=== PATIENT | female | born 1955 | race Two or more races ===

== ENCOUNTER 2024-08-26 10:28 | Outpatient (AMB) | payer OTHER, SELFPAY ==
[2024-08-26 10:40] VITALS: BP 160/105; PULSE 94; RESP 18; TEMP 36.4; O2SAT 95; BMI 30.8
--- NOTE | 2024-08-26 10:40 | GSCOFFNT_ITS ---
Vital Signs - [facility] 08/26/24 10:40 Height 1.55 m Height Method Stated Weight 74.134 kg Weight Measurement Method Standing Scale BMI 30.8 BP 160/105 H Blood Pressure Source Automatic Cuff Blood Pressure Location Right Upper Arm Position Sitting Respiration 18 Pulse 94 Pulse Source Monitor Temp 97.6 F Temp Source Temporal Artery Scan Pulse Oximetry (%) 95 Oxygen Delivery Method Room Air Med/Allergies Allergies & Medications Allergies NKA* Allergy (Uncoded 08/26/24 10:40) Medication Reconciliation Unobtainable 12/22/23 [History Confirmed 08/26/24] MA Intake Visit Data Collection New Patient or Established: Established Patient (seen at [facility] within 3 years) Seen by Clinical Staff ONLY (RN/MA): No Reason for Visit:: COLONOSCOPY RESULTS Pain Present Currently: No Pain scale:: 0 Sales Representative Door To Door Required: Yes PCP or OBGYN visit in last 3 months: Yes Hx Now: No Do You Feel Safe at Home: Yes Authorities Contacted: N/A Smoking Status Smoking Status: Never smoker Immunization / Flu Flu Vaccine in the Last 12 Months: Yes Flu Vaccine Exclusion Criteria: Already Received Past Medical History Past Medical History NEUROLOGIC: Negative Neurological Disorders or Seizures CARDIAC: Negative Cardiac Disorders or Congestive Heart Failure RESPIRATORY: Negative Chronic Obstructive Pulmonary Disease (COPD) GASTROINTESTINAL: Negative Gastrointestinal Disorders GENITOURINARY: Negative Genitourinary Disorders or Renal Disease ENDOCRINE: Negative Endocrine Disorders, Diabetes Mellitus Type 1 or Diabetes Mellitus Type 2 HEMATOLOGIC: Negative Blood Disorders OTHER HISTORY: Positive Chicken Pox; Negative Hospitalization, Autoimmune Disease, Blood Transfusions, Anesthesia Reactions, Measles, Mumps or Cancer Surgical History SURGICAL: Positive Section Social History SMOKING STATUS: Smoking status: Never smoker ALCOHOL: Alcohol Intake: Never HPI HPI Narrative Spoke to pt with in-person educational interpreter 69F here for follow up of screening colonoscopy. Procedure was undertaken 08/12 but aborted due to severe tortuosity of sigmoid colon. Pt reports feeling well currently with no complaints ROS Review of Systems Systems Reviewed: All systems reviewed, normal except as documented Objective/Exam General General Appearance: alert, cooperative and well groomed Resp Respiratory exam: Absent respiratory distress Results Colonoscopy report and pathology report reviewed (hyperplastic polyp) Assessment & Plan Diagnosis / Problem List (1) Encounter to discuss colonoscopy results: Status: Acute Plan 69F s/p attempted screening colonoscopy 08/12 which was aborted due to severe tortuosity of sigmoid colon. I recommended pt follow up with a GI to repeat scope in a year; she states she has an appt with a GI in [place] Sep 16 for EGD and will discuss colonoscopy as well. Pt is encouraged to follow up as needed Advanced Care Planning Advance care planning discussed with:: patient Office Procedures GNS Level of Care Nursing/Assessment Patient Status: Established Patient Nursing Assessment/Reassesment: Medication Reconciliation, Update PMH in EMR and Vital Signs Coordination of Care: Complex Care and Chronic Disease 1-5, Education Complex Pt/Fam, Consent,records obtained, informed consent, Results/Orders obtained and Staff clarify orders Special Needs: Language special needs Established Patient Charge Established Patient Point Assignment: 95 Established Patient Point Charge: EP Level 3 (80-115) Patient Portal Questionaires Social History Tobacco History Smoking Status: Never smoker Alcohol History Alcohol Intake: Never Domestic Abuse History Do You Feel Safe at Home: Yes Review of Systems Report any current symptoms Only answer those that you have currently: Past Medical History Past Medical History Have you ever been diagnosed with any of the following: Neurological Problems Seizures: No Cardiology Problems Congestive Heart Failure: No Respiratory Problems Chronic Obstructive Pulmonary Disease (COPD): No Genital/Urinary Problems Renal Disease: No Endocrine Problems Diabetes Mellitus Type 1: No Diabetes Mellitus Type 2: No Other Problems Hospitalization: No Autoimmune Disease: No Blood Transfusions: No Anesthesia Reactions: No Chicken Pox: Yes Measles: No Mumps: No Cancer: No
== END 2024-08-26 11:25 | disposition home or self-care (01) ==
LOC: HODSRG 10:28
PROVIDERS: PCP Registered Nurse; Referring Provider Registered Nurse; Supervising Provider Surgery; Visit Provider Surgery
DX: Z48.815 Encounter for surgical aftercare following surgery on the digestive system (principal)
CPT/HCPCS: 99213; G0463

== ENCOUNTER → 2025-05-05 | Outpatient (CLI) | payer MEDICARE, MEDICAID, SELFPAY ==
--- NOTE | 2025-05-05 14:30 | XR_ITS ---
Examination: Bone densitometry Date and time of exam:03/05/2025 1443 hours INDICATIONS: Hysterectomy age 33 calcium and vitamin D 3 years Technique: Lumbar spine and hip total bone mineralization values of an calculated. Peak reference and age match control results have been displayed. Findings: Lumbar spine total bone mineralization is0.904 gm/cm2. This is 1.3 standard deviations below peak reference. This is 0.7 standard deviations above age-matched controls. Hip total bone mineralization is 0.858 gm/cm2 This is 0.8 standard deviations below peak reference. This is 0.5standard deviations above age-matched controls Impression: There is osteopenia based on lumbar spine measurements. There is osteopenia based on hip measurements
== END | disposition home or self-care (01) ==
PROVIDERS: PCP Physician Assistant; Referring Provider Physician Assistant; Visit Provider Physician Assistant
DX: M85.89 Other specified disorders of bone density and structure, multiple sites (principal)
CPT/HCPCS: 77080

== ENCOUNTER 2025-08-22 14:14 | Outpatient (AMB) | payer OTHER, MEDICAID, SELFPAY ==
--- NOTE | 2025-08-22 14:49 | PD.GSCLVISIT ---
Vital Signs - [facility] 08/22/25 14:50 Height 1.55 m Height Method Measured Weight 73.142 kg Weight Measurement Method Standing Scale BMI 30.4 BP 139/82 H Blood Pressure Source Automatic Cuff Blood Pressure Location Right Upper Arm Position Sitting Respiration 18 Pulse 68 Pulse Source Monitor Temp 97.8 F Temp Source Temporal Artery Scan Pulse Oximetry (%) 98 Oxygen Delivery Method Room Air Med/Allergies Allergies & Medications Allergies NKA* Allergy (Uncoded 08/22/25 14:51) Medication Reconciliation Unobtainable 12/22/23 [History Confirmed 08/22/25] MA Intake Visit Data Collection New Patient or Established: Established Patient (seen at [facility] within 3 years) Seen by Clinical Staff ONLY (RN/MA): No Reason for Visit:: REFERRAL GALLSTONES Pain Present Currently: No Pain Scale Used: Bean-Price/Numerical Financial [employer] Representative Required: Yes PCP or OBGYN visit in last 3 months: Yes Hx Now: No Do You Feel Safe at Home: Yes Authorities Contacted: N/A Smoking Status Smoking Status: Never smoker Immunization / Flu Flu Vaccine in the Last 12 Months: No Flu Vaccine Exclusion Criteria: Prior Reaction to Flu Vaccine Past Medical History Past Medical History NEUROLOGIC: Negative Neurological Disorders or Seizures CARDIAC: Negative Cardiac Disorders or Congestive Heart Failure RESPIRATORY: Negative Chronic Obstructive Pulmonary Disease (COPD) GASTROINTESTINAL: Negative Gastrointestinal Disorders GENITOURINARY: Negative Genitourinary Disorders or Renal Disease ENDOCRINE: Negative Endocrine Disorders, Diabetes Mellitus Type 1 or Diabetes Mellitus Type 2 HEMATOLOGIC: Negative Blood Disorders OTHER HISTORY: Positive Chicken Pox; Negative Hospitalization, Autoimmune Disease, Blood Transfusions, Anesthesia Reactions, Measles, Mumps or Cancer Family History OTHER FAMILY HX: Sister: breast cancer Surgical History SURGICAL: Positive Knee Sx and Section Social History SMOKING STATUS: Smoking status: Never smoker ALCOHOL: Alcohol Intake: Never HPI HPI Narrative Rachel Mckay is a 70 yo female with no PMH presenting to the clinic for evaluation of cholelithiasis confirmed with US. She began to have NVD, epigastric pain that radiates to the back, fevers, and chills since the beginning of this year. The pain is a 6/10 during exacerbation, sometimes a 10/10 that caused her to go to the ED twice this year, and are not associated with meals. She also has been experiencing gastric reflux for the past few years. She denies anorexia, pencil-thin stools, or unexpected weight changes. She got both a colonoscopy and an endoscopy this year. The colonoscopy returned normal and the endoscopy results are pending. ROS Review of Systems Systems Reviewed: All systems reviewed, normal except as documented Objective/Exam General Limitations: no limitations General Appearance: alert, in no apparent distress, comfortable, cooperative, healthy appearing and well groomed Resp Respiratory exam: Absent respiratory distress Abdominal Abdominal exam: Present soft and Sabillon's sign; Absent distention, tenderness, guarding, rebound, rigidity or mass Results US performed 05/2025 confirming gallstones, no cholecystitis Assessment & Plan Diagnosis / Problem List (1) Symptomatic cholelithiasis: Status: Acute Assessment & Plan: 70F with no PMH presenting to the clinic for symptomatic cholelithiasis. Explained benefits/risks of surgery including need for conversion to open, bleeding, injury to nearby structures requiring further procedures which could include a major biliary reconstruction at a tertiary hospital, as well as postoperative hernia and diarrhea. Patient expressed understanding, all questions were answered and she would like to proceed to soon as possible Advanced Care Planning Advance care planning discussed with:: other Office Procedures GNS Level of Care Nursing/Assessment Patient Status: Established Patient Nursing Assessment/Reassesment: Medication Reconciliation, Update PMH in EMR and Vital Signs Coordination of Care: Complex Care and Chronic Disease 1-5, Education Complex Pt/Fam, Consent,records obtained, informed consent, Results/Orders obtained and Staff clarify orders Special Needs: Language special needs Established Patient Charge Established Patient Point Assignment: 95 Established Patient Point Charge: EP Level 3 (80-115) Patient Portal Questionaires Social History Tobacco History Smoking Status: Never smoker Alcohol History Alcohol Intake: Never Domestic Abuse History Do You Feel Safe at Home: Yes Review of Systems Report any current symptoms Only answer those that you have currently: Past Medical History Past Medical History Have you ever been diagnosed with any of the following: Neurological Problems Seizures: No Cardiology Problems Congestive Heart Failure: No Respiratory Problems Chronic Obstructive Pulmonary Disease (COPD): No Genital/Urinary Problems Renal Disease: No Endocrine Problems Diabetes Mellitus Type 1: No Diabetes Mellitus Type 2: No Other Problems Hospitalization: No Autoimmune Disease: No Blood Transfusions: No Anesthesia Reactions: No Chicken Pox: Yes Measles: No Mumps: No Cancer: No
[2025-08-22 14:50] VITALS: BP 139/82; PULSE 68; RESP 18; TEMP 36.6; O2SAT 98; BMI 30.4
== END 2025-08-22 15:06 | disposition home or self-care (01) ==
LOC: HODSRG 14:14
PROVIDERS: PCP Physician Assistant; Referring Provider Physician Assistant; Supervising Provider Surgery; Visit Provider Surgery
DX: K80.20 Calculus of gallbladder without cholecystitis without obstruction (principal); Z01.818 Encounter for other preprocedural examination
CPT/HCPCS: 99213; G0463

== ENCOUNTER 2025-09-19 13:43 | Outpatient (AMB) | payer MEDICARE, MEDICAID, SELFPAY ==
[2025-09-19 14:56] VITALS: BP 125/80; PULSE 76; RESP 18; TEMP 36.7; O2SAT 96; BMI 31.5
--- NOTE | 2025-09-19 14:56 | PD.GSCLVISIT ---
Vital Signs - [facility] 09/19/25 14:56 Height 1.55 m Height Method Stated Weight 75.778 kg Weight Measurement Method Standing Scale BMI 31.5 BP 125/80 Blood Pressure Source Automatic Cuff Blood Pressure Location Left Upper Arm Position Sitting Respiration 18 Pulse 76 Pulse Source Monitor Temp 98.0 F Temp Source Temporal Artery Scan Pulse Oximetry (%) 96 Oxygen Delivery Method Room Air Med/Allergies Allergies & Medications Allergies NKA* Allergy (Uncoded 09/19/25 14:57) Medication Reconciliation Unobtainable 12/22/23 [History Confirmed 09/19/25] MA Intake Visit Data Collection New Patient or Established: Established Patient (seen at [facility] within 3 years) Seen by Clinical Staff ONLY (RN/MA): No Reason for Visit:: PRE OP CHOLECYSTECTOMY Pain Present Currently: Yes Pain scale:: 6 Pain Scale Used: Bean-Price/Numerical Toll Gate Tender Required: Yes PCP or OBGYN visit in last 3 months: Yes Hx Now: No Do You Feel Safe at Home: Yes Authorities Contacted: N/A Smoking Status Smoking Status: Never smoker Immunization / Flu Flu Vaccine in the Last 12 Months: No Flu Vaccine Exclusion Criteria: Prior Reaction to Flu Vaccine Past Medical History Past Medical History NEUROLOGIC: Negative Neurological Disorders or Seizures CARDIAC: Negative Cardiac Disorders or Congestive Heart Failure RESPIRATORY: Negative Chronic Obstructive Pulmonary Disease (COPD) GASTROINTESTINAL: Negative Gastrointestinal Disorders GENITOURINARY: Negative Genitourinary Disorders or Renal Disease ENDOCRINE: Negative Endocrine Disorders, Diabetes Mellitus Type 1 or Diabetes Mellitus Type 2 HEMATOLOGIC: Negative Blood Disorders OTHER HISTORY: Positive Chicken Pox; Negative Hospitalization, Autoimmune Disease, Blood Transfusions, Anesthesia Reactions, Measles, Mumps or Cancer Family History OTHER FAMILY HX: Sister: breast cancer Surgical History SURGICAL: Positive Section Social History SMOKING STATUS: Smoking status: Never smoker ALCOHOL: Alcohol Intake: Never HPI HPI Narrative 70F here for follow-up of cholelithiasis. Patient reports she has occasional mild pains but they have been manageable, and she denies any recent changes in her health ROS Review of Systems Systems Reviewed: All systems reviewed, normal except as documented Objective/Exam General Limitations: no limitations General Appearance: alert, in no apparent distress, comfortable, cooperative, healthy appearing and well groomed Resp Respiratory exam: Absent respiratory distress Abdominal Abdominal exam: Present soft; Absent distention, tenderness, guarding, rebound, rigidity, Sabillon's sign or mass Results US performed 05/2025 confirming gallstones, no cholecystitis Assessment & Plan Diagnosis / Problem List (1) Symptomatic cholelithiasis: Status: Acute Assessment & Plan: 70F presenting with symptomatic cholelithiasis. I explained benefits/risks of surgery including need for conversion to open, bleeding, infection, injury to nearby structures requiring further procedures including the possibility of the need for major biliary reconstruction at a tertiary hospital, as well as postoperative hernia and diarrhea. All questions were answered and patient is agreeable to proceed Advanced Care Planning Advance care planning discussed with:: patient Office Procedures GNS Level of Care Nursing/Assessment Patient Status: Established Patient Nursing Assessment/Reassesment: Medication Reconciliation, Update PMH in EMR and Vital Signs Coordination of Care: Complex Care and Chronic Disease 1-5, Consent,records obtained, informed consent, Education Simp Pt/Fam, Results/Orders obtained and Staff clarify orders Special Needs: Language special needs Established Patient Charge Established Patient Point Assignment: 90 Established Patient Point Charge: EP Level 3 (80-115) Patient Portal Questionaires Social History Tobacco History Smoking Status: Never smoker Alcohol History Alcohol Intake: Never Domestic Abuse History Do You Feel Safe at Home: Yes Review of Systems Report any current symptoms Only answer those that you have currently: Past Medical History Past Medical History Have you ever been diagnosed with any of the following: Neurological Problems Seizures: No Cardiology Problems Congestive Heart Failure: No Respiratory Problems Chronic Obstructive Pulmonary Disease (COPD): No Genital/Urinary Problems Renal Disease: No Endocrine Problems Diabetes Mellitus Type 1: No Diabetes Mellitus Type 2: No Other Problems Hospitalization: No Autoimmune Disease: No Blood Transfusions: No Anesthesia Reactions: No Chicken Pox: Yes Measles: No Mumps: No Cancer: No
== END 2025-09-19 15:06 | disposition home or self-care (01) ==
LOC: HODSRG 13:43
PROVIDERS: PCP Physician Assistant; Referring Provider Physician Assistant; Supervising Provider Surgery; Visit Provider Surgery
DX: K80.20 Calculus of gallbladder without cholecystitis without obstruction (principal)
CPT/HCPCS: 99213; G0463

== ENCOUNTER 2025-09-28 05:40 | Day surgery (SDC) | payer MEDICARE, MEDICAID, SELFPAY ==
[2025-09-27 12:27] VITALS: BMI 30.2
--- NOTE | 2025-09-27 12:35 | EKG_ITS ---
[facility] Test Date: 2025-09-27 Pat Name: ARMANI SCHMIDT Department: Room: - Gender: Female Manager Regional Sales: SHONNA : 1955 Requested By: Lee Talley Order Number: [id number] Reading MD: Lee Talley Measurements Intervals [place] Rate: 68 P: 53 MN: 151 QRS: 17 QRSD: 86 T: 54 QT: 399 QTc: 427 Interpretive Statements SINUS RHYTHM No previous ECG available for comparison /store/S0/[id number]/[id number].pdf
[2025-09-27 13:41] LABS: Basophils # (Auto) 0.0 Thou/mm3 (0.0-0.2); Basophils % (Auto) 1 % (0-2.5); Eosinophils # (Auto) 0.1 Thou/mm3 (0.0-0.5); Eosinophils % (Auto) 2 % (0-10); Hematocrit 43.2 % (36.0-46.0); Hemoglobin 14.4 g/dL (12.0-16.0); Immature Granulocytes Auto 0.01 Thou/mm3 (0.00-0.00); Lymphocytes # (Auto) 2.1 Thou/mm3 (1.0-4.8); Lymphocytes % (Auto) 40 % (10-50); Mean Corpuscular HGB Conc 33.3 g/dl (31.0-37.0); Mean Corpuscular Hemoglobin 29.0 pg (25.0-35.0); Mean Corpuscular Volume 87 fL (80-100); Monocytes # (Auto) 0.3 Thou/mm3 (0.0-0.8); Monocytes % (Auto) 6 % (0-12); Neutrophils # (Auto) 2.7 Thou/mm3 (1.8-7.7); Neutrophils % (Auto) 52 % (37-80); Nucleated Red Blood Cell # 0.00 Thou/mm3 (0.00-0.00); Nucleated Red Blood Cell % 0 /100 WBC (0); Platelet Count 231 Thou/mm3 (140-440); RDW Standard Deviation 42.5 fL (36.4-46.3); Red Blood Count 4.96 Miln/mm3 (4.00-5.20); White Blood Count 5.2 Thou/mm3 (3.6-11.0)
[2025-09-27 13:48] LABS: INR 1.0 (0.9-1.3); Partial Thromboplastin Time 27.3 Seconds (22.0-36.0); Prothrombin Time 10.3 Seconds (9.0-12.2)
[2025-09-27 13:55] LABS: Alanine Aminotransferase 20 U/L (10-49); Albumin, Serum 4.6 gm/dL (3.4-4.8); Albumin/Globulin Ratio 1.4 (1.2-2.2); Alkaline Phosphatase 80 U/L (46-116); Anion Gap 8 (7-16); Aspartate Amino Transferase 24 U/L (0-34); BUN/Creatinine Ratio 23 Ratio (12-20); Bilirubin,Total 0.4 mg/dL (0.3-1.2); Blood Urea Nitrogen 14 mg/dL (9-23); Calcium 9.4 mg/dL (8.3-10.6); Calcium (Corrected) 9.4 mg/dL (8.5-10.1); Carbon Dioxide 29.4 mMol/L (20.0-31.0); Chloride 107 mMol/L (98-107); Creatinine (Component) 0.6 mg/dL (0.6-1.3); Estimated Creatinine Clearance 81.8 mL/min (>60); Globulin 3.4 gm/dL (2.3-3.5); Glucose 93 mg/dL (74-106); Osmolality,Calculated 287 (275-295); Potassium 4.4 mMol/L (3.4-5.1); Sodium 144 mMol/L (136-145); Total Protein 8.0 gm/dL (5.7-8.2); eGFR > 60 See Note
[2025-09-28] VITALS (8 sets, daily range): BP systolic 130–153; BP diastolic 73–95; PULSE 67–78; RESP 16–20; TEMP 36.1–36.2; O2SAT 96–100; BMI 31.6
--- NOTE | 2025-09-28 09:23 | PD.SUROPNT ---
Date of Procedure 09/28/25 Pre Op Diagnosis Symptomatic cholelithiasis Post Op Diagnosis Chronic cholecystitis Procedure Laparoscopic cholecystectomy Findings Inflamed gallbladder with large stone and large Calot's node Procedure Description After discussion of risks and benefits, patient was brought to the operating room, SCDs were placed and general anesthesia was induced. She received preoperative antibiotics and was prepped and draped in the usual sterile fashion. After timeout, because of patient's existing low midline incision, a left upper quadrant stab incision was made approximately 2 fingerbreadths inferior to the costal margin. The skin was elevated with towel clamps and a Veress needle was placed through the incision. Proper positioning was confirmed with a drop test and the abdomen was insufflated to 15 mmHg at which point the Veress was exchanged for a 5 mm camera using a Visiport technique. There were no signs of injury from the point of entry. 4 additional ports were placed under direct vision, one 5 mm at the suprapubic region, one 12 mm at the epigastrium, one 5 mm right subcostal and one 5 mm right anterior axillary line. Patient was placed in reverse Trendelenburg. The fundus of the gallbladder was grasped and retracted cephalad and the infundibulum was grasped and retracted laterally. There was a thick rind around the gallbladder which was bluntly dissected. The lower third of the gallbladder was removed from the gallbladder bed using electrocautery. The hepatocystic triangle was cleared of all fat and fibrous tissue using blunt dissection. Calot''s node was noted to be significantly dilated. Ultimately the critical view of safety was achieved and the cystic duct and cystic artery were clipped and transected in the usual fashion. The gallbladder was removed from the gallbladder bed using electrocautery. Hemostasis of the gallbladder bed was achieved with electrocautery and reinforced with Surgicel powder. The specimen was removed in an Endo Catch bag via the epigastric port and the epigastric fascia was closed with two 0 Vicryl sutures using a Altaf-Isa. Counts were confirmed correct. Pneumoperitoneum was released and ports were removed under direct vision. Incisions were irrigated and infiltrated with half percent Marcaine for a total of 30 cc. Incisions were closed with 4-0 Monocryl and reinforced with Dermabond. Patient was extubated and brought to PACU in stable condition Pathology / specimen Other (Gallbladder) Estimated Blood Loss 75 Surgeon Letha Cat MD Surgical Staff Operation Date: 09/28/25 07:30 Case Staff Anesthesiologist: Rohit Coronado RN First Assistant: Jackie Chaudhari
--- NOTE | 2025-09-28 09:27 | ESDS_ITS ---
Planned Discharge Date 09/28/25 DS: Providers Provider Primary care physician: Odessa Pinzon PA-C Attending Provider on Admission: Letha Cat MD Attending Provider on DC: Letha Cat MD Discharging Provider: Letha Cat MD Diagnosis Discharge Diagnosis (1) Symptomatic cholelithiasis: Status: Acute Problem List Completed Was Problem List Reviewed/Reconciled?: Yes Exam Vital Signs Temp Pulse Resp BP Pulse Ox 97 F 77 16 153/95 H 97 09/28/25 06:00 09/28/25 06:00 09/28/25 06:00 09/28/25 06:00 09/28/25 06:00 Discharge Plan Plan Patient Disposition: HOME (Self Care) Prescriptions/Referrals Prescriptions/Med Rec: New oxycodone-acetaminophen [Percocet] 5-325 mg tablet 1 tab PO Q6H MDD 4 tabs PRN (Reason: pain) Qty: 10 0RF Rx Instructions: Take 1 tablet as needed every 6 hours for moderate to severe pain No Action multivitamin [Daily Multi-Vitamin] Tablet 1 tab PO QAM Referrals: Odessa Pinzon PA-C [Primary Care Provider, Emergency Medicine] Letha Cat MD [Physician, General Surgery] Referral Note: You will receive a message to confirm a follow-up appt with me within 3 weeks Patient/Caregiver Discharge Instructions Other Discharge Activity Instructions:: Avoid lifting objects greater than 10 pounds for 6 weeks You may resume showering in 2 days, on 09/30 It is okay to get incisions wet at that time, pat dry after Avoid bathing or swimming for 2 weeks During the surgery we fill your abdomen with air in order to see the structures. Some of this air lingers and cause pain that is referred to the shoulder as well as pain with deep breaths. This will get better with time. Being out of bed and walking helps the air to absorb faster If you develop worsening pain, nausea/vomiting, fever or signs of jaundice p lease seek care in ER For any nonemergent concern please feel free to call the office at [phone] during business hours M?F 8 to 4 PM except 12 to 1 PM Education Materials: After Gallbladder Surgery, Preventing Surgical Site Infections Print Language: Upper Sorbian Stand Alone Forms: Charley Award Info., Patient Portal Info Letter Discharge Order Discharge Orders: Discharge (Routine); Ordered 09/28/25 Ordered By: Letha Cat Results Results: Laboratory Laboratory results: results reviewed Results: Imaging US - abdomen: report reviewed PROCEDURES: Procedure Date 09/28/25 Procedures Laparoscopic cholecystectomy
[2025-09-28] MEDS: fentaNYL CIT INJ 50 mCg/ML AMP 2ML 25 MCG IVP ×3 (09:35→09:48)
--- NOTE | 2025-09-28 10:30 | SUR.PHASEII ---
1030: Pt. AAOx4, vitals stable, breathing unlabored, no complaint of pain or nausea, x4 dermabond sites to ABD CDI, no active bleed noted, pt. tolerated sips of water well, pt. ambulated to wheelchair with steady gait and no assist, no complicaitons. Gave discharge instructions to the pt. and her ride using in-house shell coremaker Yumiko, both verbalized understanding and had no further questions. Pt. left with all personal belongings.
== END 2025-09-28 10:30 | disposition home or self-care (01) ==
PROVIDERS: Anesthesiology; PCP Physician Assistant; Referring Provider Surgery; Visit Provider Surgery
PROC: 0FT44ZZ Resection of Gallbladder, Percutaneous Endoscopic Approach (ICD-10-PCS; CPT 47562; principal; 2025-09-28 07:30)
DX: K80.12 Calculus of gallbladder with acute and chronic cholecystitis without obstruction (principal); Z01.810 Encounter for preprocedural cardiovascular examination
CPT/HCPCS: 47562; 36415; 80053; 85025; 85610; 85730; 93005; A4217; A4649; J0131; J0694; J1100; J1171; J1885; J2250; J2405; J2704; J3010; J3490; A9270